=== PATIENT | male | born 2000 | race Two or more races ===

== ENCOUNTER 2022-10-04 23:10 | Emergency (ER) | payer OTHER ==
[2022-10-04 23:18] VITALS: BP 133/74; PULSE 82; RESP 17; TEMP 98.5; BMI 34.0
[2022-10-04] MEDS ORDERED: METHOCARBAMOL 500 MG TABLET PO ONE (23:23)
[2022-10-04] MEDS ORDERED: ACETAMINOPHEN 500 MG TABLET (FP) PO ONE (23:23)
[2022-10-04] MEDS ORDERED: ACETAMINOPHEN 500 MG TABLET (FP) ONE (23:27)
[2022-10-04] MEDS ORDERED: METHOCARBAMOL 500 MG TABLET ONE (23:28)
== END 2022-10-05 00:38 | disposition home or self-care (01) ==
LOC: FER 23:10
DX: R07.89 Other chest pain (principal); V43.52XA Car driver injured in collision with other type car in traffic accident, initial encounter
CPT/HCPCS: 71046-TC-FY; 93005; 99284-25